=== PATIENT | female | born 1965 | race Caucasian/White ===

== ENCOUNTER 2018-09-12 16:02 | Emergency (ER) | payer OTHER, MEDICAID ==
[~2018-09-12] VITALS: Ht 157.5 cm; Wt 81.6 kg
[2018-09-12 16:05] VITALS: BP_SYST 118
[2018-09-12 17:45] LABS: BASOPHILS % (AUTO) 0.7 % (0.0-2.0); EOSINOPHILS # (AUTO) 0.2 K/uL (0.0-0.4); EOSINOPHILS % (AUTO) 4.2 % (0.0-4.0); HEMATOCRIT 41.1 % (36-48); HEMOGLOBIN 13.8 g/dL (12.0-16.0); LYMPHOCYTES # (AUTO) 2.2 K/uL (1.0-5.5); LYMPHOCYTES % (AUTO) 41.9 % (20.5-51.5); MEAN CORPUSCULAR HEMOGLOBIN 29 pg (27-31); MEAN CORPUSCULAR HGB CONC 34 % (32-36); MEAN CORPUSCULAR VOLUME 87 fL (79.0-98.0); MONOCYTES # (AUTO) 0.3 K/uL (0.0-1.0); MONOCYTES % (AUTO) 6.6 % (1.7-9.3); NEUTROPHILS # (AUTO) 2.4 K/uL (1.8-7.7); NEUTROPHILS % (AUTO) 46.6 % (40.0-70.0); PLATELET COUNT (AUTO) 269 K/uL (130-430); RED BLOOD CELL COUNT(AUTO) 4.73 MIL/uL (4.2-6.2); WHITE BLOOD COUNT (AUTO) 5.2 K/uL (4.8-10.8)
[2018-09-12 17:54] LABS: CALCIUM 8.9 mg/dL (8.4-11.0); CHLORIDE 103 mmol/L (98-107); CREATININE 0.66 mg/dL (0.55-1.30); GLUCOSE 104 mg/dL (70-99); POTASSIUM 3.1 mmol/L (3.5-5.1); SODIUM SERUM 137 mmol/L (136-145); UREA NITROGEN, BLOOD 14 mg/dL (8-21)
[2018-09-12 17:56] LABS: ANION GAP < 3 (5-15); GFR AFRICAN AMERICAN 120 mL/min (>90)
[2018-09-12 17:59] LABS: ALANINE AMINOTRANSFERASE 22 U/L (12-78); ALBUMIN 3.4 g/dL (3.4-4.8); ASPARTATE AMINOTRANSFERASE 15 U/L (10-37); TOTAL BILIRUBIN 0.5 mg/dL (0.0-1.0)
[2018-09-12 18:30] VITALS: BP_SYST 119
== END 2018-09-12 18:30 | disposition home or self-care (01) ==
LOC: SED 16:02
DX: R07.89 Other chest pain (principal); R03.0 Elevated blood-pressure reading, without diagnosis of hypertension
CPT/HCPCS: 36415; 71045; 80053; 82550-TC; 84484; 85025; 93005; 99284

== ENCOUNTER 2018-12-21 21:18 | Emergency (ER) | payer OTHER, MEDICAID ==
[~2018-12-21] VITALS: Ht 154.9 cm; Wt 81.6 kg
[2018-12-21 21:21] VITALS: BP_SYST 136
--- NOTE | 2018-12-21 22:00 | NUR ---
Patient to ER bed 7 to gown for evaluation. Side rails up.
--- NOTE | 2018-12-21 23:00 | NUR ---
ER at bedside examining patient.
--- NOTE | 2018-12-21 23:05 | NUR ---
PT came into the ED for complaints of gradual onset of cough, congestion, and fever for the past few weeks. Reports having episodes of vomiting and diarrhea. Reports intermittent dizziness associated with near syncope sensation. Denies n/v/d or fever. No other complaints/injuries noted. Will cont. to monitor.
[2018-12-21] MEDS ORDERED: NACL 0.9% 1,000 ML IV ONE (23:15)
--- NOTE | 2018-12-21 23:30 | NUR ---
PT urinated, urine sent to lab.
[2018-12-21 23:36] LABS: BASOPHILS % (AUTO) 0.6 % (0.0-2.0); EOSINOPHILS # (AUTO) 0.3 K/uL (0.0-0.4); HEMATOCRIT 41.1 % (36-48); HEMOGLOBIN 13.8 g/dL (12.0-16.0); LYMPHOCYTES # (AUTO) 2.7 K/uL (1.0-5.5); LYMPHOCYTES % (AUTO) 41.9 % (20.5-51.5); MEAN CORPUSCULAR HEMOGLOBIN 30 pg (27-31); MEAN CORPUSCULAR HGB CONC 34 % (32-36); MEAN CORPUSCULAR VOLUME 88 fL (79.0-98.0); MONOCYTES # (AUTO) 0.4 K/uL (0.0-1.0); MONOCYTES % (AUTO) 5.6 % (1.7-9.3); NEUTROPHILS % (AUTO) 46.9 % (40.0-70.0); PLATELET COUNT (AUTO) 275 K/uL (130-430); RED BLOOD CELL COUNT(AUTO) 4.68 MIL/uL (4.2-6.2); RED CELL DISTRIBUTION WIDTH 14.1 % (9.0-15.0); WHITE BLOOD COUNT (AUTO) 6.3 K/uL (4.8-10.8)
[2018-12-21 23:37] LABS: BILIRUBIN,URINE NEGATIVE (NEGATIVE); BLOOD, URINE NEGATIVE (NEGATIVE); CLARITY/URINE CLEAR (CLEAR); COLOR,URINE YELLOW (YELLOW); GLUCOSE,URINE NEGATIVE (NEGATIVE); KETONES,URINE NEGATIVE (NEGATIVE); LEUKOCYTE ESTERASE ,URINE NEGATIVE (NEGATIVE); NITRITE, URINE NEGATIVE (NEGATIVE); PROTEIN URINE NEGATIVE (NEGATIVE)
[2018-12-21 23:49] LABS: ANION GAP 7 (5-15); CALCIUM 8.7 mg/dL (8.4-11.0); CHLORIDE 108 mmol/L (98-107); CREATININE 0.84 mg/dL (0.55-1.30); GLUCOSE 100 mg/dL (70-99); POTASSIUM 3.8 mmol/L (3.5-5.1); SODIUM SERUM 142 mmol/L (136-145); UREA NITROGEN, BLOOD 10 mg/dL (8-21)
--- NOTE | 2018-12-21 23:56 | NUR ---
PT went to CT scan, tolerated well. WIll cont. to monitor.
[2018-12-21 23:58] LABS: ALANINE AMINOTRANSFERASE 31 U/L (12-78); ALBUMIN 3.3 g/dL (3.4-4.8); ASPARTATE AMINOTRANSFERASE 22 U/L (10-37); TOTAL BILIRUBIN 0.6 mg/dL (0.0-1.0)
[2018-12-21 23:59] LABS: GFR AFRICAN AMERICAN 91 mL/min (>90)
--- NOTE | 2018-12-22 01:16 | NUR ---
PTs relative Jeremy said he would like to go to the car but left his number [phone]
--- NOTE | 2018-12-22 02:22 | NUR ---
Dr. Nash at bedside speaking ot pt about results.
--- NOTE | 2018-12-22 02:22 | NUR ---
Benjamin dominguez in ED - 12/22/18 at 0222 by [email or web address] BRADLY Reyes at bedside examining patient.
--- NOTE | 2018-12-22 02:23 | NUR ---
ER MD Dr. Nash would like pt to finish fluids before discharge.
--- NOTE | 2018-12-22 03:13 | NUR ---
Patient given written and verbal discharge instructions and verbalizes understanding. ER MD discussed with patient the results and treatment provided. Patient in stable condition. ID arm band removed. IV catheter removed intact and dressing applied, no active bleeding. NO Rx of given. Patient educated on pain management and to follow up with PMD. Pain Scale 0/10. Opportunity for questions provided and answered. Medication side effect fact sheet provided.
[2018-12-22 03:15] VITALS: BP_SYST 124
[2018-12-22] MEDS ORDERED: BACITRACIN ZINC 15 GM TOPICAL OINTMENT TP ONE (03:15)
== END 2018-12-22 03:13 | disposition home or self-care (01) ==
LOC: SED 21:18
DX: E86.0 Dehydration (principal); J06.9 Acute upper respiratory infection, unspecified; R42 Dizziness and giddiness; R19.7 Diarrhea, unspecified
CPT/HCPCS: 36415; 70450; 71045; 80053; 81003; 84484; 85025; 96360; 96361; 99284; J7030

== ENCOUNTER 2021-12-08 10:32 | Inpatient (IN) | payer OTHER, MEDICAID ==
[~2021-12-08] VITALS: Ht 154.9 cm; Wt 72.1 kg
[2021-12-08 10:37] VITALS: BP_SYST 139
--- NOTE | 2021-12-08 10:40 | NUR ---
Placed in room 3 . Placed on hall monitor, blood pressure machine and pulse oximeter. To gown for exam. Side rails up. Report given to JULIANNA ARREGUIN.
--- NOTE | 2021-12-08 10:50 | NUR ---
MD GRIER BEDSIDE FOR ASSESSMENT. VSS. NAD NOTED. AWAITING ADDITIONAL ORDERS. WILL CONT TO MONITOR PT.
[2021-12-08] MEDS ORDERED: ASPIRIN 81 MG TAB.CHEW PO ONE (11:00)
[2021-12-08 11:41] LABS: ANION GAP 6 (5-15); CALCIUM 9.1 mg/dL (8.4-11.0); CHLORIDE 106 mmol/L (98-107); CREATININE 0.86 mg/dL (0.55-1.30); GLUCOSE 102 mg/dL (70-99); POTASSIUM 3.6 mmol/L (3.5-5.1); SODIUM SERUM 141 mmol/L (136-145); UREA NITROGEN, BLOOD 7 mg/dL (8-21)
[2021-12-08 11:42] LABS: EOSINOPHILS # (AUTO) 0.1 K/uL (0.0-0.4); EOSINOPHILS % (AUTO) 1.8 % (0.0-4.0); HEMOGLOBIN 14.2 g/dL (12.0-16.0); LYMPHOCYTES # (AUTO) 1.5 K/uL (1.0-5.5); LYMPHOCYTES % (AUTO) 33.8 % (20.5-51.5); MEAN CORPUSCULAR HEMOGLOBIN 29 pg (27-31); MEAN CORPUSCULAR HGB CONC 34 % (32-36); MEAN CORPUSCULAR VOLUME 87 fL (79.0-98.0); MONOCYTES # (AUTO) 0.2 K/uL (0.0-1.0); MONOCYTES % (AUTO) 5.2 % (1.7-9.3); NEUTROPHILS # (AUTO) 2.5 K/uL (1.8-7.7); NEUTROPHILS % (AUTO) 58.2 % (40.0-70.0); PLATELET COUNT (AUTO) 260 K/uL (130-430); RED BLOOD CELL COUNT(AUTO) 4.82 MIL/uL (4.2-6.2); RED CELL DISTRIBUTION WIDTH 13.8 % (9.0-15.0); WHITE BLOOD COUNT (AUTO) 4.3 K/uL (4.8-10.8)
[2021-12-08 11:46] LABS: GFR AFRICAN AMERICAN 87 mL/min (>90)
[2021-12-08 11:49] LABS: ALANINE AMINOTRANSFERASE 10 U/L (12-78); ALBUMIN 3.4 g/dL (3.4-4.8); ASPARTATE AMINOTRANSFERASE 16 U/L (10-37); TOTAL BILIRUBIN 0.7 mg/dL (0.0-1.0)
[2021-12-08] MEDS ORDERED: MORPHINE 2 MG/ML INJ. SYRINGE IVP PRN (12:15)
[2021-12-08] MEDS ORDERED: DOCUSATE SODIUM 100 MG/10 ML UDC PO PRN (12:15)
[2021-12-08] MEDS ORDERED: guaiFENesin/DEXTROMETHORPHAN 10 ML UDC PO PRN (12:15)
[2021-12-08] MEDS ORDERED: ONDANSETRON HCL 4 MG/2 ML VIAL IVP PRN (12:15)
[2021-12-08] MEDS ORDERED: ACETAMINOPHEN 500 MG TABLET PO PRN (12:15)
[2021-12-08] MEDS ORDERED: NALOXONE HCL 0.4 MG/ML AMP (NARCAN) IVP PRN (12:30)
[2021-12-08] MEDS ORDERED: hydrALAZINE HCL 20 MG/ML VIAL IVP PRN (12:45)
[2021-12-08] MEDS ORDERED: IPRATROPIUM/ALBUTEROL SULFATE 3 ML AMPUL.NEB (DUONEB) INH PRN ×2 (13:00)
[2021-12-08 13:03] VITALS: BP_SYST 156
[2021-12-08] MEDS ORDERED: METOPROLOL TARTRATE 25 MG TABLET PO ONE (13:15)
[2021-12-08] MEDS ORDERED: ATORVASTATIN 10 MG TABLET PO ONE (13:15)
[2021-12-08] MEDS ORDERED: lisinopriL 5 MG TABLET PO ONE (13:15)
[2021-12-08 13:33] LABS: PHOSPHORUS 3.4 mg/dL (2.7-4.5)
--- NOTE | 2021-12-08 14:01 | NUR ---
COVID AND MRSA SAMPLE SENT TO LAB.
[2021-12-08] MEDS: IPRATROPIUM/ALBUTEROL SULFATE 3 ML AMPUL.NEB (DUONEB) INH SCH ×2 (16:18→20:28)
[2021-12-08] MEDS: NITROGLYCERIN 0.4 MG TAB.SUBL SL PRN ×3 (20:21→20:36)
--- NOTE | 2021-12-08 20:22 | NUR ---
pt c/o chest pressure non radiating; prn nitro sublingual given and ekg in process. wctm VSS
[2021-12-08] MEDS ORDERED: METOPROLOL TARTRATE 25 MG TABLET PO SCH (21:00)
[2021-12-08] MEDS ORDERED: MECLIZINE HCL 25 MG TABLET (ANITVERT) PO PRN (22:45)
--- NOTE | 2021-12-08 23:50 | NUR ---
Patient will be admitted to care of JULIANNA Warren. Admitted to tele unit. Will go to room 132C. Belongings list completed. Complete and up to date summary report printed. SBAR report to be given at bedside with opportunity for questions.
[2021-12-09] VITALS: BP_SYST 118
--- NOTE | 2021-12-09 | NUR ---
ADMISSION NOTE Received patient from ER via gurney. Patient admitted with diagnosis of SYNCOPE AND CHEST PRESSURE . Patient is awake, alert, oriented X4 . Patient oriented to hospital room, call light, toileting, pain management and safety-teach back done. Patient informed that 1 will HER nurse and that their room number is 132C. Personal belongings checked and Belongings List documented. Call light within reach.WILL CONTINUE TO MONITOR.
[2021-12-09 00:25] VITALS: BP_SYST 118
[2021-12-09] MEDS: IPRATROPIUM/ALBUTEROL SULFATE 3 ML AMPUL.NEB (DUONEB) INH SCH ×7 (03:00→23:00)
--- NOTE | 2021-12-09 05:58 | NUR ---
PT RESTING COMFORTABLY IN BED, NO S/S OF DISTRESS OR DISCOMFORT NOTED, BREATHING EVEN AND UNLABORED, ALL FALL PROTOCOLS IN PLACE, BSC WITHIN REACH, REPOSITIONS SELF PER COMFORT, WILL CONTINUE TO MONITOR.
[2021-12-09 06:41] LABS: BASOPHILS % (AUTO) 0.9 % (0.0-2.0); CALCIUM 8.8 mg/dL (8.4-11.0); CREATININE 0.77 mg/dL (0.55-1.30); EOSINOPHILS # (AUTO) 0.1 K/uL (0.0-0.4); EOSINOPHILS % (AUTO) 2.9 % (0.0-4.0); HEMATOCRIT 41.1 % (36-48); HEMOGLOBIN 13.8 g/dL (12.0-16.0); LYMPHOCYTES # (AUTO) 2.1 K/uL (1.0-5.5); LYMPHOCYTES % (AUTO) 43.4 % (20.5-51.5); MEAN CORPUSCULAR HEMOGLOBIN 30 pg (27-31); MEAN CORPUSCULAR HGB CONC 34 % (32-36); MEAN CORPUSCULAR VOLUME 89 fL (79.0-98.0); MONOCYTES # (AUTO) 0.3 K/uL (0.0-1.0); MONOCYTES % (AUTO) 6.2 % (1.7-9.3); NEUTROPHILS # (AUTO) 2.3 K/uL (1.8-7.7); NEUTROPHILS % (AUTO) 46.6 % (40.0-70.0); PLATELET COUNT (AUTO) 220 K/uL (130-430); POTASSIUM 3.8 mmol/L (3.5-5.1); RED BLOOD CELL COUNT(AUTO) 4.65 MIL/uL (4.2-6.2); RED CELL DISTRIBUTION WIDTH 14.1 % (9.0-15.0); WHITE BLOOD COUNT (AUTO) 4.9 K/uL (4.8-10.8)
--- NOTE | 2021-12-09 07:33 | NUR ---
REPORT GIVEN TO CIELO CROSS FOR CONTINUITY OF CARE ALL QUESTIONS WERE ANSWERED AND MEDICAL REFERRAL COORDINATOR VERBALIZED UNDERSTANDING.
[2021-12-09 08:00] VITALS: BP_SYST 114
--- NOTE | 2021-12-09 08:00 | NUR ---
OPENING NOTE Patient sitting up in bed, alert and oriented x4. No sign of distress and patient denies pain at this time. Patient updated on her plan of care, verbalized understanding. IV site is clean, dry, intact, and saline locked. Patient aware that she is on fall precautions and needs to call before ambulating. All needs met at this time and safety checks made.
[2021-12-09] MEDS: lisinopriL 5 MG TABLET PO SCH (09:00)
[2021-12-09] MEDS ORDERED: POTASSIUM CHLORIDE 20 MEQ TAB.PRT.SR PO PRN (09:00)
[2021-12-09] MEDS: ATORVASTATIN 10 MG TABLET PO SCH (09:27)
[2021-12-09] MEDS: ASPIRIN 81 MG TAB.CHEW PO SCH (09:27)
[2021-12-09] MEDS: PANTOPRAZOLE SODIUM 40 MG TAB PO SCH (09:28)
[2021-12-09] MEDS: NITROGLYCERIN 0.4 MG TAB.SUBL SL PRN (09:36)
--- NOTE | 2021-12-09 09:37 | NUR ---
CHEST PRESSURE Patient complaining of chest pressure, 12/07. 1 tab of nitroglycerin given. Patient tolerated well and states that the pressure is starting to be relieved.
--- NOTE | 2021-12-09 11:34 | NUR ---
ROUNDS Patient resting in bed with family at bedside. Patient and brother were updated on the plan of care. Patient states that her chest pain is much better and she "hardly feels anything now". Patient states that she is still dizzy when she sits up too quickly. Reminded patient of her fall precautions and advised her to not try and stand up on her own. All needs met at this time and safety checks made.
[2021-12-09 12:00] VITALS: BP_SYST 122
--- NOTE | 2021-12-09 13:22 | NUR ---
PAIN MEDICATION Patient complained of on and off headache, 12/07. PRN extra strength tylenol given as patient did not want to take anything stronger at this time.
[2021-12-09 16:00] VITALS: BP_SYST 102
--- NOTE | 2021-12-09 19:34 | NUR ---
CLOSING NOTE Patient in bed resting, no sign of distress and patient denies chest pressure. Patient complaining of a persistent headache. Comfort measures provided. IV is intact and saline locked. Patient is updated on her plan of care, verbalized understanding. All needs met at this time and safety checks made. Endorsed to shift production supervisor nurse.
[2021-12-09 21:00] VITALS: BP_SYST 112
--- NOTE | 2021-12-09 21:45 | NUR ---
PATIENT REQUESTING AMBIEN TABLET FOR SLEEP , assist for comfort measures call jones given to patient / .
[2021-12-09] MEDS: ZOLPIDEM TARTRATE 5 MG TABLET PO PRN (22:47)
[2021-12-09] MEDS: HYDROcodone/ACETAMIN 7.5-325 MG TAB PO PRN (22:47)
[2021-12-10 01:50] VITALS: BP_SYST 99
[2021-12-10] MEDS: IPRATROPIUM/ALBUTEROL SULFATE 3 ML AMPUL.NEB (DUONEB) INH SCH ×4 (03:00→15:26)
--- NOTE | 2021-12-10 03:29 | NUR ---
VICODEN ES TABLET po given for general pain per patient Request & helpful , patient Resting sleeping FALL MEASURES implemented call jones with patient / .
--- NOTE | 2021-12-10 05:40 | NUR ---
Hourly Rounding patient Resting sleeping Respirations regular also unlabored call jones with patient bed to low position / .
[2021-12-10 06:09] LABS: BASOPHILS % (AUTO) 0.6 % (0.0-2.0); EOSINOPHILS # (AUTO) 0.2 K/uL (0.0-0.4); EOSINOPHILS % (AUTO) 3.2 % (0.0-4.0); HEMATOCRIT 40.2 % (36-48); HEMOGLOBIN 13.5 g/dL (12.0-16.0); LYMPHOCYTES # (AUTO) 1.7 K/uL (1.0-5.5); LYMPHOCYTES % (AUTO) 35.1 % (20.5-51.5); MEAN CORPUSCULAR HEMOGLOBIN 30 pg (27-31); MEAN CORPUSCULAR HGB CONC 34 % (32-36); MEAN CORPUSCULAR VOLUME 88 fL (79.0-98.0); MONOCYTES # (AUTO) 0.3 K/uL (0.0-1.0); MONOCYTES % (AUTO) 6.1 % (1.7-9.3); NEUTROPHILS # (AUTO) 2.7 K/uL (1.8-7.7); PLATELET COUNT (AUTO) 222 K/uL (130-430); RED BLOOD CELL COUNT(AUTO) 4.55 MIL/uL (4.2-6.2); RED CELL DISTRIBUTION WIDTH 14.1 % (9.0-15.0); WHITE BLOOD COUNT (AUTO) 4.8 K/uL (4.8-10.8)
[2021-12-10 06:22] LABS: CALCIUM 8.4 mg/dL (8.4-11.0); CREATININE 0.86 mg/dL (0.55-1.30); POTASSIUM 3.4 mmol/L (3.5-5.1)
--- NOTE | 2021-12-10 06:50 | NUR ---
consult called for González for Dr Voss. Spoke with Natasha
[2021-12-10] MEDS: lisinopriL 5 MG TABLET PO SCH (09:00)
[2021-12-10] MEDS: ATORVASTATIN 10 MG TABLET PO SCH (09:10)
[2021-12-10] MEDS: ASPIRIN 81 MG TAB.CHEW PO SCH (09:10)
[2021-12-10] MEDS: PANTOPRAZOLE SODIUM 40 MG TAB PO SCH (09:10)
--- NOTE | 2021-12-10 11:12 | NUR ---
CONSULTATION PAGED/CALLED Reason for Consultation: []Syncope Person Who was Notified: []Ayde Consulting Physician: [] Dr. Gamble Funeral Counselor Specialty: []Neuro Ordering Physician: []Dr. Hdz
--- NOTE | 2021-12-10 13:00 | NUR ---
cleocin IV first dose given at 1300
[2021-12-10] MEDS: CLINDAMYCIN 600 mg/50mL D5W 50 ML IV SCH ×2 (17:08→18:33)
[2021-12-10 20:00] VITALS: BP_SYST 91
--- NOTE | 2021-12-10 20:48 | NUR ---
MD ROUNDS: DR SMITH IS MAKING ROUNDSMD ORDERED TO DC TELEMETRY , PT WILL BE ON MED SURG STATUS
[2021-12-10] MEDS: ZOLPIDEM TARTRATE 5 MG TABLET PO PRN (22:24)
[2021-12-10] MEDS: HYDROcodone/ACETAMIN 7.5-325 MG TAB PO PRN (22:24)
[2021-12-11] VITALS: BP_SYST 132
[2021-12-11] MEDS: CLINDAMYCIN 600 mg/50mL D5W 50 ML IV SCH ×5 (00:18→23:29)
[2021-12-11 06:25] LABS: BASOPHILS % (AUTO) 0.9 % (0.0-2.0); EOSINOPHILS # (AUTO) 0.2 K/uL (0.0-0.4); EOSINOPHILS % (AUTO) 4.3 % (0.0-4.0); HEMATOCRIT 36.3 % (36-48); HEMOGLOBIN 12.4 g/dL (12.0-16.0); LYMPHOCYTES # (AUTO) 1.7 K/uL (1.0-5.5); LYMPHOCYTES % (AUTO) 40.7 % (20.5-51.5); MEAN CORPUSCULAR HEMOGLOBIN 30 pg (27-31); MEAN CORPUSCULAR HGB CONC 34 % (32-36); MEAN CORPUSCULAR VOLUME 87 fL (79.0-98.0); MONOCYTES # (AUTO) 0.3 K/uL (0.0-1.0); MONOCYTES % (AUTO) 6.3 % (1.7-9.3); NEUTROPHILS % (AUTO) 47.8 % (40.0-70.0); PLATELET COUNT (AUTO) 202 K/uL (130-430); RED BLOOD CELL COUNT(AUTO) 4.16 MIL/uL (4.2-6.2); RED CELL DISTRIBUTION WIDTH 13.7 % (9.0-15.0); WHITE BLOOD COUNT (AUTO) 4.2 K/uL (4.8-10.8)
[2021-12-11 06:45] LABS: CALCIUM 7.9 mg/dL (8.4-11.0); CREATININE 0.77 mg/dL (0.55-1.30); POTASSIUM 3.2 mmol/L (3.5-5.1)
[2021-12-11 08:00] VITALS: BP_SYST 95
[2021-12-11] MEDS: PANTOPRAZOLE SODIUM 40 MG TAB PO SCH (09:12)
[2021-12-11] MEDS: ASPIRIN 81 MG TAB.CHEW PO SCH (09:13)
[2021-12-11] MEDS: IPRATROPIUM/ALBUTEROL SULFATE 3 ML AMPUL.NEB (DUONEB) INH SCH ×2 (10:22→16:51)
--- NOTE | 2021-12-11 11:56 | NUR ---
DISCHARGE PLANNING Order for dc to SNF. Spoke with pt at bedside & agreeable with dc to SNF for IV abx if brother is agreeable. Gave her a list of SNF's with 4 SNF's listed. [facility] prefers [facility]. [facility] can call brothwalter Castro & if he is agreeable she is agreeable. Pt states brother is coming later, if can not get hold of brother will have nurse call me to come speak with him. Pt did not know #, states nurse has it, got # from nurse. Called & lt msg with Matthew De La O() ph [phone]. Addendum: 12/11/21 at 1232 by Daniela De La O RN Received call back from brother Matthew, [facility] coming in to see pt & will discuss SNF with pt & is also going to discuss with pt's PCP. Pt had a very bad experience with SNF in past & wants to discuss with pt's PCP first. Addendum: 12/11/21 at 1418 by Daniela De La O RN Spoke with pt and brother Matthew at bedside. They have discussed and are both agreeable with plan to dc to [facility] today if accepted. Updated dc retail planner. Addendum: 12/11/21 at 1418 by Daniela De La O RN MRI pending today prior to dc Addendum: 12/11/21 at 1625 by Daniela De La O RN Received call from charu Sims, wants to speak with Dr Oneill before makes decision.
[2021-12-11 12:14] VITALS: BP_SYST 98
--- NOTE | 2021-12-11 12:57 | NUR ---
Discharge Planning: DCP faxed pt referral to [facility] [phone] DCP to follow up Addendum: 12/11/21 at 1559 by Celine Carolina DP DCP arranged transport with [facility] [phone] [facility]LS [phone] Rm 100D. DCP made CM and nurse aware. Patient packet taken to nurse station.
[2021-12-11] MEDS: ATORVASTATIN 10 MG TABLET PO SCH (13:12)
[2021-12-11] MEDS: POTASSIUM CHLORIDE 20 MEQ TAB.PRT.SR PO SCH (13:23)
[2021-12-11 16:12] VITALS: BP_SYST 116
--- NOTE | 2021-12-11 19:00 | NUR ---
PT HAS HAD AN UNEVENTFUL DAY. RESPIRATIONS EVEN ET UNLABORED. NO S/S ACUTE DISTRESS NOTED. PT VOICES NO C/O PAIN NOR DYSPNEA. PT HAS NOT REQUIRED PAIN MEDS THROUGHOUT THE SHIFT. PT AND HER BROTHER HAVE SPOKEN WITH CARBON DIOXIDE OPERATOR REGARDING TRANSFER TO SNF UPON DISCHARGE. NO CHANGE IN CONDITION NOTED.
[2021-12-11 19:35] VITALS: BP_SYST 98
--- NOTE | 2021-12-11 19:35 | NUR ---
INITIAL NOTE AT INITIAL ASSESSMENT, PATIENT IS RESTING IN BED, STABLE, NO SIGNS OF RESPIRATORY DISTRESS. SHE VERBALIZES NO PAIN OR SHORTNESS OF BREATH. PATIENT DEMONSTRATES BACK CORRECT USAGE OF CALL LIGHT AT THIS TIME. SHE IS IN A ROOM CLOSE TO THE NURSING STATION FOR CLOSE MONITORING. BED IS LOCKED, ALARMED, AND AT THE LOWEST LEVEL. FALL, AND SAFETY PRECAUTIONS WILL BE IN PLACE THROUGHOUT THE SHIFT.
[2021-12-11] MEDS: HYDROcodone/ACETAMIN 7.5-325 MG TAB PO PRN (21:03)
--- NOTE | 2021-12-11 22:30 | NUR ---
DISCHARGE PLANNING FOR 12/12/21 AM: [facility] HAS BED 104A READY FOR PATIENT, BUT PER PATIENT AND HER BROTHER MARKUS [phone], THEY WOULD LIKE FOR DISCHARGE TO BE ARRANGED IN THE MORNING, PREFERABLY AFTER BREAKFAST, SO SHE CAN REST FOR THE NIGHT. [facility] CALLED; THEY HAVE VERIFIED THAT PATIENT'S BED WILL STILL BE HELD FOR HER TOMORROW DAYTIME. PATIENT AND HER BROTHER MADE AWARE THAT DISCHARGE WILL HAPPEN IN THE MORNING. ARRANGED FOR [facility] STATISTICAL DEVELOPER @0930 AM. CHARGE NURSE MADE AWARE. Addendum: 12/12/21 at 0502 by Rodo Del Rio RN [facility] [phone], [facility] [phone], MARKUS DAILEY (BROTHER) [phone] Addendum: 12/12/21 at 0503 by Rodo March tire rebuilder CHARLY REPORT GIVEN TO LISA VITAL SERVICE DESK DIRECTOR AT [facility]. ALL QUESTIONS ADDRESSED. NURSE VERIFIED THAT PATIENT WILL STILL BE GOING TO ROOM 104B UNDER THE CARE OF ADRIAN TROY.
[2021-12-12 01:33] VITALS: BP_SYST 96
[2021-12-12 04:32] VITALS: BP_SYST 97
--- NOTE | 2021-12-12 04:55 | NUR ---
REPORT GIVEN TO [facility] MOTH EXTERMINATOR SBAR REPORT GIVEN TO LISA [facility]ITAL MOTH EXTERMINATOR AT [facility]. ALL QUESTIONS ADDRESSED. NURSE VERIFIED THAT PATIENT WILL STILL BE GOING TO ROOM 104B UNDER THE CARE OF ADRIAN TROY.
[2021-12-12] MEDS: IPRATROPIUM/ALBUTEROL SULFATE 3 ML AMPUL.NEB (DUONEB) INH SCH ×3 (05:39→08:27)
[2021-12-12 06:01] LABS: BASOPHILS % (AUTO) 0.8 % (0.0-2.0); EOSINOPHILS # (AUTO) 0.2 K/uL (0.0-0.4); EOSINOPHILS % (AUTO) 4.9 % (0.0-4.0); HEMATOCRIT 36.3 % (36-48); HEMOGLOBIN 12.4 g/dL (12.0-16.0); LYMPHOCYTES # (AUTO) 1.7 K/uL (1.0-5.5); LYMPHOCYTES % (AUTO) 39.2 % (20.5-51.5); MEAN CORPUSCULAR HEMOGLOBIN 30 pg (27-31); MEAN CORPUSCULAR HGB CONC 34 % (32-36); MEAN CORPUSCULAR VOLUME 88 fL (79.0-98.0); MONOCYTES # (AUTO) 0.3 K/uL (0.0-1.0); MONOCYTES % (AUTO) 6.8 % (1.7-9.3); NEUTROPHILS % (AUTO) 48.3 % (40.0-70.0); PLATELET COUNT (AUTO) 196 K/uL (130-430); RED BLOOD CELL COUNT(AUTO) 4.12 MIL/uL (4.2-6.2); RED CELL DISTRIBUTION WIDTH 14.1 % (9.0-15.0); WHITE BLOOD COUNT (AUTO) 4.2 K/uL (4.8-10.8)
[2021-12-12] MEDS: CLINDAMYCIN 600 mg/50mL D5W 50 ML IV SCH (06:36)
[2021-12-12 06:39] LABS: CALCIUM 8.2 mg/dL (8.4-11.0); CREATININE 0.74 mg/dL (0.55-1.30); POTASSIUM 3.9 mmol/L (3.5-5.1)
--- NOTE | 2021-12-12 06:51 | NUR ---
CLOSING NOTE NO CHANGES. PATIENT SLEPT WELL DURING THE SHIFT. AT THIS TIME, PATIENT IS RESTING IN BED, STABLE, NO SIGNS OF RESPIRATORY DISTRESS. BED IS LOCKED, ALARMED, AND AT THE LOWEST LEVEL. FALL, AND SAFETY PRECAUTIONS HAVE BEEN IN PLACE THROUGHOUT THE SHIFT. WILL CONTINUE TO MONITOR UNTIL SHIFT REPORT IS GIVEN AT BEDSIDE TO AM NURSE.
--- NOTE | 2021-12-12 07:20 | NUR ---
OPENING NOTE RECEIVED SBAR FROM NIGHT RN, PATIENT IN BED, RESPIRATIONS EVEN, NON LABORED, BED IN LOW AND LOCKED POSITION, CALL LIGHT WITHIN REACH, BED ALARM ON
[2021-12-12 08:00] VITALS: BP_SYST 103
--- NOTE | 2021-12-12 08:00 | NUR ---
nurse note obtained vs, patient A&Ox 3 unable to name president. Patient aware that she is being transferred to [facility] later this morning
[2021-12-12] MEDS: POTASSIUM CHLORIDE 20 MEQ TAB.PRT.SR PO SCH (08:17)
[2021-12-12] MEDS: ASPIRIN 81 MG TAB.CHEW PO SCH (08:17)
[2021-12-12] MEDS: PANTOPRAZOLE SODIUM 40 MG TAB PO SCH (08:18)
[2021-12-12] MEDS: ATORVASTATIN 10 MG TABLET PO SCH (08:18)
--- NOTE | 2021-12-12 11:04 | NUR ---
PT TRANSFERRED Report given to RN at [facility]. Transfer packet with Transfer Orders and Medication Reconciliation form given to EMT with report. Exitcare provided. [facility] ID band removed, replaced with ID band with pt's name and . All belongings sent with patient. Patient left floor via gurney escorted by EMT in no distress.
== END 2021-12-12 11:04 | DRG 601 ==
LOC: SED 10:32 → STU 12:05 → SMU 12-10 20:57
PROVIDERS: ADMIT Student in an Organized Health Care Education/Training Program; ATTEND Student in an Organized Health Care Education/Training Program
DX: N61.0 Mastitis without abscess (principal); G90.9 Disorder of the autonomic nervous system, unspecified; R07.9 Chest pain, unspecified; J45.909 Unspecified asthma, uncomplicated; Z96.651 Presence of right artificial knee joint; E66.09 Other obesity due to excess calories; I10 Essential (primary) hypertension; F41.9 Anxiety disorder, unspecified; G89.29 Other chronic pain; Z20.822 Contact with and (suspected) exposure to COVID-19; Z82.49 Family history of ischemic heart disease and other diseases of the circulatory system; Z79.899 Other long term (current) drug therapy
CPT/HCPCS: 36415; 70450-TC; 70551; 71045; 76376; 76642; 77066; 80048; 80053; 82150; 83690; 83735; 83880; 84100; 84484; 85025; 87081; 93005; 93306; 94640; 94664; 94760; 95816; 96374; 99285; G0378; J2270; J3490